=== PATIENT | female | born 1945 | race Caucasian/White ===

== ENCOUNTER → 2019-06-21 | Outpatient (CLI) | payer OTHER | LOC: M.RAD 06-10 15:53 | DX: Z12.31 Encounter for screening mammogram for malignant neoplasm of breast (principal); Z13.820 Encounter for screening for osteoporosis; M85.89 Other specified disorders of bone density and structure, multiple sites; Z76.89 Persons encountering health services in other specified circumstances; Z78.0 Asymptomatic menopausal state ==

== ENCOUNTER → 2020-08-10 | Outpatient (CLI) | payer OTHER | LOC: M.RAD 10:00 | PROVIDERS: ATTEND Nurse Practitioner Family | DX: Z12.31 Encounter for screening mammogram for malignant neoplasm of breast (principal) ==